=== PATIENT | male | born 1940 | race Caucasian/White ===

== ENCOUNTER 2019-11-05 | Emergency (ER) | payer MEDICARE, OTHER ==
[~2019-11-05] MED LIST: AMOXICILLIN500 MG OR; LOVAZA1 GM OR; NEXIUM40 M1 OR
[2019-11-05] MEDS ORDERED: MEDDOSEPAK PO (12:49)
[2019-11-05] MEDS ORDERED: ORPHENADRINE100 MG PO (12:49)
== END 2019-11-05 13:03 | disposition home or self-care (01) ==
DX: S16.1XXA Strain of muscle, fascia and tendon at neck level, initial encounter (principal); I10 Essential (primary) hypertension; F17.200 Nicotine dependence, unspecified, uncomplicated; X58.XXXA Exposure to other specified factors, initial encounter